=== PATIENT | female | born 1970 | race Caucasian/White ===

== ENCOUNTER → 2016-06-04 | Outpatient (REF) | payer BC | LOC: M LAB REF 16:32 | PROVIDERS: ATTEND Ophthalmology | DX: D23.12 Other benign neoplasm of skin of left eyelid, including canthus (principal) ==

== ENCOUNTER → 2018-07-06 | Outpatient (REF) | payer BC | LOC: M LAB LCGH 09:06 | PROVIDERS: ATTEND Surgery | DX: R10.13 Epigastric pain (principal) ==

== ENCOUNTER → 2018-11-11 | Outpatient (REF) | payer BC | LOC: M LAB LCGH 11:30 | PROVIDERS: ATTEND Obstetrics & Gynecology Obstetrics | DX: Z12.4 Encounter for screening for malignant neoplasm of cervix (principal); N92.6 Irregular menstruation, unspecified ==

== ENCOUNTER → 2018-11-24 | Outpatient (REF) | LOC: M LAB LCGH 10:10 | PROVIDERS: ATTEND Obstetrics & Gynecology | DX: Z00.00 Encounter for general adult medical examination without abnormal findings (principal) ==

== ENCOUNTER → 2018-12-23 | Outpatient (REF) | LOC: M LAB LCGH 15:27 | PROVIDERS: ATTEND Obstetrics & Gynecology | DX: N84.0 Polyp of corpus uteri (principal); N80.0 Endometriosis of uterus; D25.2 Subserosal leiomyoma of uterus; N83.8 Other noninflammatory disorders of ovary, fallopian tube and broad ligament ==